=== PATIENT | female | born 1960 | race Caucasian/White ===

== ENCOUNTER 2023-04-02 09:36 | Emergency (ER) | payer MEDICAID ==
[~2023-04-02] VITALS: Ht 162.6 cm; Wt 130.0 kg
[2023-04-02] MEDS ORDERED: ondansetron/PF 4mg/2ml inj IV ONE (09:50)
[2023-04-02] MEDS ORDERED: normal saline 1000ML IV soln IVB ONE (09:50)
[2023-04-02] MEDS ORDERED: morphine 4 MG/ML inj SYRINge IV ONE (09:50)
[2023-04-02 10:12] VITALS: BP 141/92
[2023-04-02 10:21] LABS: CLARITY,URINE CLEAR (Clear); COLOR,URINE YELLOW (Yellow); GLUCOSE, URINE NEGATIVE (Neg); KETONES,URINE NEGATIVE (Neg); LEUKOCYTE ESTERASE ,URINE NEGATIVE (Neg); NITRITES, URINE NEGATIVE (Neg); OCCULT BLOOD,URINE TRACE-INTACT (Neg); PROTEIN,URINE NEGATIVE (Neg); UROBILINOGEN,URINE 0.2 E.U/dL (0.2-1.0)
[2023-04-02 10:25] LABS: UA COLLECTION TYPE CLN CATCH MIDSTREAM
[2023-04-02 10:26] LABS: BACTERIA,URINE FEW /HPF (Neg); MUCUS STRANDS NONE SEEN /LPF (Neg); SQUAMOUS EPITHELIAL CELL,UR FEW /LPF (FEW); WBC CLUMPS,URINE FEW /HPF (NEGATIVE)
[2023-04-02 10:31] LABS: BASOPHILS # (AUTO) 0.1 X10'3 (0-0.2); BASOPHILS % (AUTO) 0.9 % (0-1); EOSINOPHILS # (AUTO) 0.1 X10'3 (0-0.9); EOSINOPHILS % (AUTO) 0.8 % (0-6); HEMATOCRIT 49.9 % (35.0-45.0); HEMOGLOBIN 16.8 g/dl (12.0-16.0); LYMPHOCYTES # (AUTO) 1.6 X10'3 (1.1-4.8); LYMPHOCYTES % (AUTO) 23.1 % (21-51); MEAN CORPUSCULAR HEMOGLOBIN 31.4 PG (27.0-31.0); MEAN CORPUSCULAR HGB CONC 33.7 g/dL (33.0-36.5); MEAN CORPUSCULAR VOLUME 93.3 FL (78-98); MEAN PLATELET VOLUME 8.1 FL (7.4-10.4); MONOCYTES # (AUTO) 0.4 X10'3 (0-0.9); MONOCYTES % (AUTO) 5.9 % (2-12); NEUTROPHILS # (AUTO) 4.7 X10'3 (1.8-7.7); NEUTROPHILS % (AUTO) 69.3 % (42-75); PLATELET COUNT 219 X10'3 (140-440); RED BLOOD COUNT 5.35 X10'6 (4.20-5.60); RED CELL DISTRIBUTION WIDTH 14.2 % (11.5-14.5); WHITE BLOOD COUNT 6.9 X10'3 (4.5-11.0)
[2023-04-02 10:44] LABS: ALANINE AMINOTRANSFERASE 280 U/L (12-78); ALBUMIN 4.3 G/DL (3.4-5.0); ALBUMIN/GLOBULIN RATIO 0.9 (1.1-1.5); ALKALINE PHOSPHATASE 146 IU/L (46-116); ANION GAP 12 (8-16); ASPARTATE AMINO TRANSFERASE 244 U/L (10-37); BILIRUBIN,TOTAL 1.2 MG/DL (0.1-1.0); BLOOD UREA NITROGEN 19 MG/DL (7-18); BUN/CREATININE RATIO 22.6 (10.0-20.0); CALCIUM 9.5 MG/DL (8.5-10.1); CHLORIDE 100 MMOL/L (99-107); CREATININE 0.84 MG/DL (0.40-0.90); GLUCOSE 122 MG/DL (70-104); LIPASE 140 U/L (73-393); POTASSIUM 3.9 MMOL/L (3.5-5.1); SODIUM 140 MMOL/L (135-145); TOTAL CARBON DIOXIDE 27.9 MMOL/L (24-32); TOTAL PROTEIN 9.1 G/DL (6.4-8.2); eGFR 69 ML/MIN
[2023-04-02] MEDS ORDERED: iohexol 300mg/ml 100ml inj. ONE (11:02)
== END 2023-04-02 11:18 | disposition left against medical advice (07) ==
LOC: ER 09:37
DX: K80.50 Calculus of bile duct without cholangitis or cholecystitis without obstruction (principal); F17.200 Nicotine dependence, unspecified, uncomplicated; Z88.5 Allergy status to narcotic agent
CPT/HCPCS: 36415; 71045; 76700; 80053; 81001; 83690; 85025; 87077; 87088; 87186; 99284; J3490; Q9967

== ENCOUNTER 2023-04-03 23:16 | Inpatient (IN) | payer MEDICAID ==
[~2023-04-03] VITALS: Ht 162.6 cm; Wt 100.0 kg
[2023-04-04 00:01] LABS: MEAN CORPUSCULAR HGB CONC 33.3 g/dL (33.0-36.5)
[2023-04-04 00:02] LABS: ALANINE AMINOTRANSFERASE 394 U/L (12-78); ALBUMIN 3.5 G/DL (3.4-5.0); ALBUMIN/GLOBULIN RATIO 0.9 (1.1-1.5); ALKALINE PHOSPHATASE 172 IU/L (46-116); ANION GAP 9 (8-16); ASPARTATE AMINO TRANSFERASE 217 U/L (10-37); BILIRUBIN,TOTAL 0.8 MG/DL (0.1-1.0); BLOOD UREA NITROGEN 22 MG/DL (7-18); BUN/CREATININE RATIO 23.2 (10.0-20.0); CALCIUM 8.8 MG/DL (8.5-10.1); CHLORIDE 105 MMOL/L (99-107); CREATININE 0.95 MG/DL (0.40-0.90); GLUCOSE 126 MG/DL (70-104); LIPASE 179 U/L (73-393); SODIUM 143 MMOL/L (135-145); TOTAL CARBON DIOXIDE 29.3 MMOL/L (24-32); TOTAL PROTEIN 7.4 G/DL (6.4-8.2); eGFR 60 ML/MIN
[2023-04-04 00:03] LABS: BASOPHILS # (AUTO) 0.1 X10'3 (0-0.2); BASOPHILS % (AUTO) 1.2 % (0-1); EOSINOPHILS # (AUTO) 0.1 X10'3 (0-0.9); EOSINOPHILS % (AUTO) 1.4 % (0-6); HEMATOCRIT 46.3 % (35.0-45.0); HEMOGLOBIN 15.4 g/dl (12.0-16.0); LYMPHOCYTES # (AUTO) 1.9 X10'3 (1.1-4.8); MEAN CORPUSCULAR HEMOGLOBIN 31.1 PG (27.0-31.0); MEAN CORPUSCULAR VOLUME 93.4 FL (78-98); MEAN PLATELET VOLUME 8.4 FL (7.4-10.4); MONOCYTES # (AUTO) 0.3 X10'3 (0-0.9); MONOCYTES % (AUTO) 6.1 % (2-12); NEUTROPHILS # (AUTO) 3.2 X10'3 (1.8-7.7); NEUTROPHILS % (AUTO) 57.3 % (42-75); PLATELET COUNT 198 X10'3 (140-440); RED BLOOD COUNT 4.96 X10'6 (4.20-5.60); RED CELL DISTRIBUTION WIDTH 14.3 % (11.5-14.5); WHITE BLOOD COUNT 5.7 X10'3 (4.5-11.0)
[2023-04-04 01:04] LABS: ETHANOL < 0.010 GM/DL (0.0-0.010)
[2023-04-04] MEDS ORDERED: piperacillin/tazo 3.375gm/50ml 50 ML IV ONE (01:15)
[2023-04-04] MEDS ORDERED: morphine 2 MG/ML inj. syringe IV ONE (01:50)
[2023-04-04 01:55] LABS: MAGNESIUM 1.8 MG/DL (1.5-2.4)
[2023-04-04] MEDS ORDERED: potassium Cl 40MEQ/1/2NS 520ml 520 ML IV PRN (02:15)
[2023-04-04] MEDS ORDERED: magnesium 2GM in 50ml NS 50 ML IV PRN (02:15)
[2023-04-04] MEDS ORDERED: magnesium Cl slow-release 64mg tablet PO PRN (02:15)
[2023-04-04] MEDS ORDERED: magnesium 4gm in 100ml NS 100 ML IV PRN (02:15)
[2023-04-04] MEDS ORDERED: acetaminophen 325mg tablet PO PRN (02:15)
[2023-04-04] MEDS ORDERED: potassium Cl 20 mEq SR tablet PO PRN ×2 (02:15)
[2023-04-04] MEDS ORDERED: LORazepam 2 mg/ml vial IV ONE (02:20)
[2023-04-04] MEDS: normal saline 1000ml 1,000 ML IV SCH ×3 (02:33→22:15)
[2023-04-04 02:41] LABS: APTT 24 SECONDS (22-32)
[2023-04-04 03:03] LABS: MAGNESIUM 1.9 MG/DL (1.5-2.4); POTASSIUM 4.2 MMOL/L (3.5-5.1)
--- NOTE | 2023-04-04 04:08 | NUR ---
Just received report from ER nurse Aubree.
--- NOTE | 2023-04-04 04:15 | NUR ---
Patient arrived to floor via gurney. A&O, sleepy, in no distress. SBA from [place] rock to bed and 2 RN skin check completed.
[2023-04-04 04:30] VITALS: BP 131/77
--- NOTE | 2023-04-04 06:45 | NUR ---
Problems reprioritized. Patient report given, questions answered & plan of care reviewed with Fozia FERGUSON.
[2023-04-04] MEDS: piperacillin/tazo 3.375gm/50ml 50 ML IV SCH ×3 (07:47→23:34)
[2023-04-04] MEDS: K and/or MAG REPLACEMENT MC SCH ×2 (08:00→20:00)
[2023-04-04] MEDS ORDERED: sincalide inj 2 MCG in normal saline 100ml IV soln 100 ML IV ONE ×2 (08:35→10:00)
[2023-04-04 10:00] VITALS: BP 124/84
[2023-04-04] MEDS ORDERED: NO HOME MEDS (10:06)
[2023-04-04 18:00] VITALS: BP 161/112
--- NOTE | 2023-04-04 18:15 | NUR ---
Patient in room ORTHO 4008. I have received report from Fozia FERGUSON and had the opportunity to ask questions and assume patient care.
[2023-04-04 20:30] VITALS: BP 141/83
[2023-04-04] MEDS: diatr meglu/diatrizoate 30ml oral sol.-(3 dose) bottle PO SCH (21:01)
[2023-04-04] MEDS: heparin, porcine 5000 units/ml vial SQ SCH (21:11)
[2023-04-04 22:00] VITALS: BP 129/73
[2023-04-05] VITALS (24 sets, daily range): BP systolic 109–180; BP diastolic 61–112
[2023-04-05] MEDS: normal saline 1000ml 1,000 ML IV SCH ×2 (02:36→22:08)
[2023-04-05] MEDS: morphine 2 MG/ML inj. syringe IV PRN (04:46)
--- NOTE | 2023-04-05 06:30 | NUR ---
Report given to Fozia FERGUSON.
[2023-04-05 06:52] LABS: BASOPHILS # (AUTO) 0.1 X10'3 (0-0.2); BASOPHILS % (AUTO) 0.9 % (0-1); EOSINOPHILS # (AUTO) 0.1 X10'3 (0-0.9); EOSINOPHILS % (AUTO) 2.2 % (0-6); HEMATOCRIT 44.9 % (35.0-45.0); HEMOGLOBIN 15.1 g/dl (12.0-16.0); LYMPHOCYTES % (AUTO) 30.9 % (21-51); MEAN CORPUSCULAR HEMOGLOBIN 31.3 PG (27.0-31.0); MEAN CORPUSCULAR HGB CONC 33.5 g/dL (33.0-36.5); MEAN CORPUSCULAR VOLUME 93.3 FL (78-98); MEAN PLATELET VOLUME 8.3 FL (7.4-10.4); MONOCYTES # (AUTO) 0.4 X10'3 (0-0.9); MONOCYTES % (AUTO) 5.8 % (2-12); NEUTROPHILS # (AUTO) 3.9 X10'3 (1.8-7.7); NEUTROPHILS % (AUTO) 60.2 % (42-75); PLATELET COUNT 190 X10'3 (140-440); RED BLOOD COUNT 4.82 X10'6 (4.20-5.60); RED CELL DISTRIBUTION WIDTH 14.2 % (11.5-14.5); WHITE BLOOD COUNT 6.4 X10'3 (4.5-11.0)
[2023-04-05 07:09] LABS: ALANINE AMINOTRANSFERASE 329 U/L (12-78); ALBUMIN 3.2 G/DL (3.4-5.0); ALBUMIN/GLOBULIN RATIO 0.9 (1.1-1.5); ALKALINE PHOSPHATASE 163 IU/L (46-116); ANION GAP 4 (8-16); ASPARTATE AMINO TRANSFERASE 108 U/L (10-37); BILIRUBIN,TOTAL 0.9 MG/DL (0.1-1.0); BLOOD UREA NITROGEN 10 MG/DL (7-18); BUN/CREATININE RATIO 12.2 (10.0-20.0); CALCIUM 8.7 MG/DL (8.5-10.1); CHLORIDE 104 MMOL/L (99-107); CREATININE 0.82 MG/DL (0.40-0.90); GLUCOSE 101 MG/DL (70-104); MAGNESIUM 1.9 MG/DL (1.5-2.4); POTASSIUM 3.9 MMOL/L (3.5-5.1); SODIUM 136 MMOL/L (135-145); TOTAL CARBON DIOXIDE 27.8 MMOL/L (24-32); TOTAL PROTEIN 6.9 G/DL (6.4-8.2); eGFR 71 ML/MIN
[2023-04-05] MEDS: diatr meglu/diatrizoate 30ml oral sol.-(3 dose) bottle PO SCH ×2 (07:21→21:00)
[2023-04-05] MEDS: K and/or MAG REPLACEMENT MC SCH ×2 (08:00→20:00)
[2023-04-05] MEDS: heparin, porcine 5000 units/ml vial SQ SCH ×2 (08:00→22:13)
[2023-04-05] MEDS: piperacillin/tazo 3.375gm/50ml 50 ML IV SCH ×2 (09:16→22:09)
[2023-04-05] MEDS ORDERED: BUPIVAcaine/PF 2.5 mg/ml (0.25%) 30ml vial ONE (12:23)
[2023-04-05] MEDS ORDERED: morphine 2 MG/ML inj. syringe IV PRN (15:05)
[2023-04-05] MEDS ORDERED: ringers solution, lacted 1,000 ML IV SCH (15:05)
[2023-04-05] MEDS ORDERED: ondansetron/PF 4mg/2ml inj IV PRN (15:05)
[2023-04-05] MEDS ORDERED: ketorolac trometh. 30mg/ml inj. IV ONE (15:05)
[2023-04-05] MEDS ORDERED: meperidine/PF 25mg/ml syringe IV PRN ×3 (15:05)
[2023-04-05] MEDS ORDERED: acetaminophen 1,000mg/100ml IV 100 ML IV PRN (15:05)
[2023-04-05] MEDS ORDERED: proCHLORperazine 10 MG/2 ml inj IV PRN (15:05)
[2023-04-05] MEDS ORDERED: hydrALAZINE 20mg/ml inj. IV PRN (15:05)
[2023-04-05] MEDS ORDERED: morphine 4 MG/ML inj SYRINge IV PRN (15:05)
[2023-04-05] MEDS ORDERED: labetalol 20mg/4ml (5mg/ml) syringe IV PRN (15:05)
[2023-04-05] MEDS ORDERED: midazolam 1 mg/ML 2ml injection ONE (15:08)
[2023-04-05] MEDS ORDERED: fentaNYL /PF 50mcg/ml 5ml ampule ONE (15:09)
[2023-04-05] MEDS ORDERED: sevoflurane 250ml liquid IH ONE (15:14)
[2023-04-05] MEDS ORDERED: albuterol 60 PUFF/8GM Inhaler (90mcg/1 puff) IH ONE (15:14)
[2023-04-05] MEDS ORDERED: rocuronium 10mg/ml inj IV ONE (15:31)
[2023-04-05] MEDS ORDERED: ceFOXitin 1000 MG inj ONE ×2 (15:31)
[2023-04-05] MEDS ORDERED: propofol inj 20 ML IV ONE (15:31)
[2023-04-05] MEDS ORDERED: LIDOcaine 2% (20mg/ml) 5ml vial ONE (15:31)
[2023-04-05] MEDS ORDERED: dexamethasone sod phosphate 4mg/ml inj. ONE (15:33)
[2023-04-05] MEDS ORDERED: ondansetron/PF 4mg/2ml inj ONE (15:33)
[2023-04-05] MEDS ORDERED: neostigmine methylsulfate 1 MG/ML 10ml vial ONE (16:54)
[2023-04-05] MEDS ORDERED: glycopyrrolate 0.2mg/ml inj ONE (16:54)
[2023-04-05] MEDS ORDERED: naloxone 0.4 mg/ml inj IV PRN (17:00)
[2023-04-05] MEDS ORDERED: HYDROcodone/acetaminophen 10/325mg tab PO PRN (17:00)
--- NOTE | 2023-04-05 17:06 | NUR ---
Received from OR via BED, accompanied by DR. MACHUCA-Anesthesia REPORT GIVEN. PATIENT WAKING UP, DENIES PAIN, V/S WNL, SCD ON , PIV 20G LUE, LAPS SITES X4-CDI TO ABDOMEN.
--- NOTE | 2023-04-05 19:00 | NUR ---
Patient in room ORTHO 4008. I have received report from Fozia dominguez and had the opportunity to ask questions and assume patient care.
--- NOTE | 2023-04-05 19:16 | NUR ---
PT DOING WELL, AWAKE, DENIES PAIN-BUT NOTED TO BE STOIC AND GRIMACE AT TIMES, VSS, LAP SITES X 4-CDI, TOLERATING ICE CHIPS, ENCOURAGED TO ASK FOR PAIN MEDS WHEN ON THE FLOOR IF NEEDED, DISCUSSED SPLINTING TECHNIQUES WELL, REPORT CALLED TO RN INGA-ALL QUESTIONS ANSWERED, TAKEN BACK TO ROOM 4008, BED LOW AND LOCKED, PRIMARY RN IN TO RECEIVE PT.
--- NOTE | 2023-04-05 19:17 | NUR ---
Received report from recovery manager Janelle. Pt. to follow shortly.
--- NOTE | 2023-04-05 19:25 | NUR ---
Patient arrived back to room. Sleepy, in no distress. Post op vs being initiated.
[2023-04-06] MEDS: piperacillin/tazo 3.375gm/50ml 50 ML IV SCH ×4 (03:15→23:13)
[2023-04-06] MEDS: normal saline 1000ml 1,000 ML IV SCH ×2 (04:15→14:15)
[2023-04-06 06:00] VITALS: BP 137/67
--- NOTE | 2023-04-06 06:30 | NUR ---
Reported off to Fozia FERGUSON.
[2023-04-06 06:40] LABS: BASOPHILS % (AUTO) 0.2 % (0-1); EOSINOPHILS % (AUTO) 0 % (0-6); HEMATOCRIT 46.2 % (35.0-45.0); HEMOGLOBIN 15.4 g/dl (12.0-16.0); LYMPHOCYTES # (AUTO) 0.7 X10'3 (1.1-4.8); LYMPHOCYTES % (AUTO) 8.8 % (21-51); MEAN CORPUSCULAR HEMOGLOBIN 31.2 PG (27.0-31.0); MEAN CORPUSCULAR HGB CONC 33.4 g/dL (33.0-36.5); MEAN CORPUSCULAR VOLUME 93.3 FL (78-98); MEAN PLATELET VOLUME 8.3 FL (7.4-10.4); MONOCYTES # (AUTO) 0.2 X10'3 (0-0.9); MONOCYTES % (AUTO) 2.2 % (2-12); NEUTROPHILS # (AUTO) 7.2 X10'3 (1.8-7.7); NEUTROPHILS % (AUTO) 88.8 % (42-75); PLATELET COUNT 196 X10'3 (140-440); RED BLOOD COUNT 4.95 X10'6 (4.20-5.60); RED CELL DISTRIBUTION WIDTH 14.1 % (11.5-14.5); WHITE BLOOD COUNT 8.2 X10'3 (4.5-11.0)
[2023-04-06 06:56] LABS: ALANINE AMINOTRANSFERASE 247 U/L (12-78); ALBUMIN/GLOBULIN RATIO 0.7 (1.1-1.5); ALKALINE PHOSPHATASE 144 IU/L (46-116); ANION GAP 8 (8-16); ASPARTATE AMINO TRANSFERASE 71 U/L (10-37); BILIRUBIN,TOTAL 0.6 MG/DL (0.1-1.0); BLOOD UREA NITROGEN 11 MG/DL (7-18); BUN/CREATININE RATIO 13.9 (10.0-20.0); CALCIUM 8.6 MG/DL (8.5-10.1); CHLORIDE 103 MMOL/L (99-107); CREATININE 0.79 MG/DL (0.40-0.90); GLUCOSE 167 MG/DL (70-104); MAGNESIUM 1.8 MG/DL (1.5-2.4); POTASSIUM 3.8 MMOL/L (3.5-5.1); SODIUM 136 MMOL/L (135-145); TOTAL CARBON DIOXIDE 24.8 MMOL/L (24-32); TOTAL PROTEIN 7.1 G/DL (6.4-8.2); eGFR 74 ML/MIN
[2023-04-06] MEDS: K and/or MAG REPLACEMENT MC SCH ×2 (08:00→19:01)
[2023-04-06] MEDS: heparin, porcine 5000 units/ml vial SQ SCH ×2 (08:04→19:24)
[2023-04-06 10:00] VITALS: BP 139/68
--- NOTE | 2023-04-06 17:00 | NUR ---
received patient from Fozia FERGUSON. Assumed care. Patient given PRN Wilmer for 10/10 pain in abd. Patient currently laying in bed. IV running. All safety measures in place and call light in reach.will report to night nurse
[2023-04-06 18:00] VITALS: BP 185/83
--- NOTE | 2023-04-06 18:00 | NUR ---
I have reviewed and agree with interventions & documentation by Prema Nguyen LVN.
[2023-04-06] MEDS: morphine 2 MG/ML inj. syringe IV PRN (19:06)
[2023-04-06] MEDS: ondansetron/PF 4mg/2ml inj IV PRN (19:24)
[2023-04-06] MEDS ORDERED: ketorolac tromethamine 15mg/ml inj. IV ONE (21:20)
--- NOTE | 2023-04-06 21:30 | NUR ---
pt refuses to walk. still nauseated. pain controlled. convinced pt to roll on side. rolled side to side to replace sheet. ended up on left side. resting. "I just want to sleep".
[2023-04-06 21:45] VITALS: BP 185/83
[2023-04-06 22:10] VITALS: BP 165/57
--- NOTE | 2023-04-06 22:33 | NUR ---
noted elevated BP - retook with bigger cuff, noted 165/57, heart rate 39. placed on cont pulse ox and noted irregular heart rate. will notify MD. pt still nauseated. sats 88% placed on 2L.
--- NOTE | 2023-04-06 22:45 | NUR ---
Dr. Whitman at bedside. watched EKG being done, ordered compazine for nausea. gave pt toradol and compazine. Dr. Whitman notified Dr. Marcum by phone. no further orders from Dr. Marcum. bladder scanned pt for 200ml - received order from Dr. Whitman to st cath. pt refused, will retry. placed pt on tele.
[2023-04-06] MEDS ORDERED: PERFLUTREN PROTEIN-A MICROSPHR (Optison) 0.22 MG/ML 3ML VIAL IV ONE (22:55)
[2023-04-06] MEDS: proCHLORperazine 10 MG/2 ml inj IV PRN (23:13)
[2023-04-07] VITALS (7 sets, daily range): BP systolic 141–169; BP diastolic 59–92
--- NOTE | 2023-04-07 00:23 | NUR ---
tele reports rhythm 2nd degree type 2 with regular WA intervals and a dropped qrs. usually 2 beats and a dropped beat. pt nausea and pain relieved. no distress. refuses to get OOB to go to the bathroom or get st cath "I don't feel like I have to go". notified Dr. Whitman of rhythm and refusal of void/st cath. MD aware. no further orders.
--- NOTE | 2023-04-07 05:46 | NUR ---
will report to day RN about heart changes and follow up with mortuary technician. pt has BS and gets to BSC to void. have been encouraging walking as well. suggest norco with nausea medicine or change to toradol for pain control
[2023-04-07 06:21] LABS: ALANINE AMINOTRANSFERASE 199 U/L (12-78); ALBUMIN 3.2 G/DL (3.4-5.0); ALBUMIN/GLOBULIN RATIO 0.8 (1.1-1.5); ALKALINE PHOSPHATASE 139 IU/L (46-116); ANION GAP 7 (8-16); ASPARTATE AMINO TRANSFERASE 58 U/L (10-37); BILIRUBIN,TOTAL 0.7 MG/DL (0.1-1.0); BLOOD UREA NITROGEN 15 MG/DL (7-18); BUN/CREATININE RATIO 17.2 (10.0-20.0); CALCIUM 8.7 MG/DL (8.5-10.1); CHLORIDE 100 MMOL/L (99-107); CREATININE 0.87 MG/DL (0.40-0.90); GLUCOSE 139 MG/DL (70-104); MAGNESIUM 1.9 MG/DL (1.5-2.4); POTASSIUM 3.4 MMOL/L (3.5-5.1); SODIUM 137 MMOL/L (135-145); TOTAL CARBON DIOXIDE 30.4 MMOL/L (24-32); TOTAL PROTEIN 7.2 G/DL (6.4-8.2); eGFR 66 ML/MIN
[2023-04-07 06:28] LABS: BASOPHILS % (AUTO) 0.4 % (0-1); EOSINOPHILS % (AUTO) 0.1 % (0-6); HEMATOCRIT 47.6 % (35.0-45.0); HEMOGLOBIN 16.1 g/dl (12.0-16.0); LYMPHOCYTES # (AUTO) 1.6 X10'3 (1.1-4.8); LYMPHOCYTES % (AUTO) 13.9 % (21-51); MEAN CORPUSCULAR HEMOGLOBIN 31.6 PG (27.0-31.0); MEAN CORPUSCULAR HGB CONC 33.9 g/dL (33.0-36.5); MEAN CORPUSCULAR VOLUME 93.3 FL (78-98); MEAN PLATELET VOLUME 8.8 FL (7.4-10.4); MONOCYTES # (AUTO) 0.8 X10'3 (0-0.9); MONOCYTES % (AUTO) 6.6 % (2-12); PLATELET COUNT 190 X10'3 (140-440); WHITE BLOOD COUNT 11.4 X10'3 (4.5-11.0)
--- NOTE | 2023-04-07 06:43 | NUR ---
Patient in room ORTHO 4008. I have received report from Alcides and had the opportunity to ask questions and assume patient care.
[2023-04-07] MEDS: K and/or MAG REPLACEMENT MC SCH ×2 (06:45→20:00)
[2023-04-07] MEDS: piperacillin/tazo 3.375gm/50ml 50 ML IV SCH ×2 (07:24→18:15)
[2023-04-07] MEDS: ondansetron/PF 4mg/2ml inj IV PRN (07:24)
[2023-04-07] MEDS: normal saline 1000ml 1,000 ML IV SCH ×3 (07:33→22:19)
[2023-04-07] MEDS: heparin, porcine 5000 units/ml vial SQ SCH ×2 (09:02→19:57)
[2023-04-07] MEDS ORDERED: magnesium Cl slow-release 64mg tablet PO PRN (10:40)
[2023-04-07] MEDS ORDERED: magnesium 2GM in 50ml NS 50 ML IV PRN (10:40)
[2023-04-07] MEDS ORDERED: potassium Cl 20 mEq SR tablet PO PRN ×2 (10:40)
[2023-04-07] MEDS ORDERED: magnesium 4gm in 100ml NS 100 ML IV PRN (10:40)
[2023-04-07] MEDS ORDERED: potassium Cl 40MEQ/1/2NS 520ml 520 ML IV PRN (10:40)
[2023-04-07] MEDS ORDERED: potassium Cl 40MEQ/1/2NS 520ml 520 ML IV ONE (11:30)
[2023-04-07] MEDS: proCHLORperazine 10 MG/2 ml inj IV PRN (11:45)
[2023-04-07] MEDS: metoclopramide 5 mg/ml inj IV SCH ×2 (14:14→19:56)
[2023-04-07] MEDS: morphine 2 MG/ML inj. syringe IV PRN ×2 (16:23→22:21)
--- NOTE | 2023-04-07 18:42 | NUR ---
Problems reprioritized. Patient report given, questions answered & plan of care reviewed with Pradeep.
--- NOTE | 2023-04-07 19:30 | NUR ---
pt states that she's had back pain at home previously "My friend gave me a muscle relaxer and it really worked. can I get on here?" educated that I could ask night MD but not sure it would be filled. pt unable to say what medication it was but recognized Flexeril when suggested. gave her a back rub while she laid down on her side.
[2023-04-07] MEDS ORDERED: ketorolac tromethamine 15mg/ml inj. IV SCH (19:35)
[2023-04-07] MEDS ORDERED: K and/or MAG REPLACEMENT MC SCH (20:00)
[2023-04-08] MEDS: proCHLORperazine 10 MG/2 ml inj IV PRN (00:31)
[2023-04-08] MEDS: morphine 2 MG/ML inj. syringe IV PRN (00:32)
[2023-04-08] MEDS: piperacillin/tazo 3.375gm/50ml 50 ML IV SCH (00:32)
[2023-04-08] MEDS ORDERED: ketorolac tromethamine 15mg/ml inj. IV PRN (00:50)
[2023-04-08 02:00] VITALS: BP 121/80
--- NOTE | 2023-04-08 02:00 | NUR ---
pt resting w/o distress - VSS. laying on left sidt.
--- NOTE | 2023-04-08 02:20 | NUR ---
niece Meeta came to take patient's belongings. explained next steps of choosing mortuary and contacting rest of her family. Meeta chose [facility]. helped take necklace, glasses, phone, home planning consultant salesperson, purse and clothes. no other belongings noticed. walked niece back to lobby where was waiting for her.
--- NOTE | 2023-04-08 02:50 | NUR ---
Notified pt's field contact technician, Keisha of patient passing at this time. I was unable to get any information on where they would like her body to be transferred to due to her being upset and crying and hanging the phone up on me.
--- NOTE | 2023-04-08 03:01 | NUR ---
0230- tele called notifying of 3rd degree heart block and patient HR in 20's. ran to room and found patient unresponsive with brown emesis coming out of mouth and nose. color was purple on face and neck. pt was positioned on her side. slight bloody nostril. pt unresponsive to verbal or painful stimulus. attempted to suction out mouth and nose, unsuccessful. noted HR on tele was in 20's. unable to get blood pressure. Multiple attempts to get patient's airway open. absent gag reflex. Dr. Whitman present at 0235. noted copious amounts of brown fluid running from nose and mouth. tele called with no qrs complexes seen on monitor. continued to suction with continued stimulus which was ineffective. devulcanizer charger calling family. pronounced patient around 0245
--- NOTE | 2023-04-08 03:30 | NUR ---
daughter Myriam from [place] called asking for clarification of what happened. gave history of visit and surgery and that Meeta had patient's belongings and had chose and local [facility] for patient to go to. notified that mortuary would contact family for next steps. Myriam requested that her name be placed on the contact list instead of Meeta's "because she's not even family". Provided mortuary with both phone numbers to contact. Meeta is "emergency contact" for this admission.
--- NOTE | 2023-04-08 03:50 | NUR ---
notified donor network of patient's passing. provided phone number Meeta [phone] Niece and daughter Myriam [place] [phone]. Myriam prefers to be called over Meeta
--- NOTE | 2023-04-08 04:00 | NUR ---
notified [employer] of potential drilling engineering manager's case. she will notify drilling engineering manager.
--- NOTE | 2023-04-08 04:10 | NUR ---
metal tube cutter Porsha released body from metal tube cutter's care to [facility]. no autopsy to be performed.
--- NOTE | 2023-04-08 04:15 | NUR ---
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 they stated they would be coming by when they could.
--- NOTE | 2023-04-08 06:00 | NUR ---
[facility] picked up patient
--- NOTE | 2023-04-08 07:10 | NUR ---
Called and left message for Dr Marcum to return my call : Wanted to notify Dr Marcum of patient passing away at 0238.
--- NOTE | 2023-04-08 09:08 | NUR ---
Dr Marcum notified via phone of patient passing on NOC shift.
== END 2023-04-08 06:22 | DRG 263 ==
LOC: ER 23:17 → ED HOLD 04-04 02:17 → ORTHO 4S 04-04 04:14
PROVIDERS: ADMIT Internal Medicine; ATTEND Family Medicine
PROC: CF1C1ZZ Planar Nuclear Medicine Imaging of Hepatobiliary System, All using Technetium 99m (Tc-99m) (ICD-10-PCS; 2023-04-04)
PROC: 8E0W4CZ Robotic Assisted Procedure of Trunk Region, Percutaneous Endoscopic Approach (ICD-10-PCS; 2023-04-05)
PROC: 0FT44ZZ Resection of Gallbladder, Percutaneous Endoscopic Approach (ICD-10-PCS; principal; 2023-04-05 15:14)
DX: K80.20 Calculus of gallbladder without cholecystitis without obstruction (principal); N17.0 Acute kidney failure with tubular necrosis; I44.1 Atrioventricular block, second degree; E87.6 Hypokalemia; Z66 Do not resuscitate; F17.210 Nicotine dependence, cigarettes, uncomplicated; I46.9 Cardiac arrest, cause unspecified; F12.90 Cannabis use, unspecified, uncomplicated; R00.1 Bradycardia, unspecified; R74.01 Elevation of levels of liver transaminase levels; E66.9 Obesity, unspecified; R74.8 Abnormal levels of other serum enzymes; I10 Essential (primary) hypertension; K82.8 Other specified diseases of gallbladder; Z80.0 Family history of malignant neoplasm of digestive organs; Z87.11 Personal history of peptic ulcer disease; Z88.5 Allergy status to narcotic agent; Z68.37 Body mass index [BMI] 37.0-37.9, adult; Z71.6 Tobacco abuse counseling; Z86.16 Personal history of COVID-19
CPT/HCPCS: 36415; 71045; 74176; 74181; 78227; 80053; 80320; 82948; 83605; 83690; 83735; 84132; 84145; 85025; 85610; 85730; 87040; 87081; 93005; 93306; 99285; A4215; A4615; A4618; A7000; A9537; G0378; J0131; J0694; J0780; J1100; J1644; J1885; J2060; J2175; J2250; J2270; J2405; J2543; J2704; J2710; J2765; J2805; J3010; J3480; J3490; J7030; J7042; J7120; Q9963